=== PATIENT | female | born 1955 | race Caucasian/White ===

== ENCOUNTER 2018-03-10 10:07 | Day surgery (SDC) | payer OTHER ==
[~2018-03-10] VITALS: Ht 160 cm; Wt 53.2 kg
[~2018-03-10 10:07] MED LIST: BIOTIN2500 MCG PO
[2018-03-10] MEDS ORDERED: FISH OIL + D31 EACH (10:31)
[2018-03-10] MEDS ORDERED: VALA500 (10:32)
[2018-03-10] MEDS ORDERED: WOMEN MULTIVIT1 EACH (10:32)
[2018-03-10] MEDS ORDERED: CHONDROITIN SULFATE (10:32)
[2018-03-10] MEDS ORDERED: HYALURONATE SODIUM (10:32)
== END 2018-03-10 11:57 | disposition home or self-care (01) ==
LOC: ORSCSDS 10:07
PROVIDERS: Internal Medicine Gastroenterology
PROC: 0DBL8ZX Excision of Transverse Colon, Via Natural or Artificial Opening Endoscopic, Diagnostic (ICD-10-PCS; principal; 2018-03-10 11:30)
DX: Z12.11 Encounter for screening for malignant neoplasm of colon (principal); D12.3 Benign neoplasm of transverse colon; Q00-Q99 Congenital malformations, deformations and chromosomal abnormalities; K64.8 Other hemorrhoids; K57.30 Diverticulosis of large intestine without perforation or abscess without bleeding; E78.5 Hyperlipidemia, unspecified
CPT/HCPCS: 88305

== ENCOUNTER 2019-03-19 19:40 | Emergency (ER) | payer OTHER ==
[~2019-03-19] VITALS: Ht 160 cm; Wt 54.4 kg
[~2019-03-19 19:40] MED LIST changes: +CHONDROITIN SULFATE; +FISH OIL + D31 EACH; +HYALURONATE SODIUM; +VALA500; +WOMEN MULTIVIT1 EACH
[2019-03-19] MEDS ORDERED: Percocet 5-3251 EACH PO (21:29)
[2019-03-19] MEDS ORDERED: BACI500TO TOP (21:29)
== END 2019-03-19 22:40 | disposition home or self-care (01) ==
LOC: ER 19:40
DX: T22.212A Burn of second degree of left forearm, initial encounter (principal); T31.0 Burns involving less than 10% of body surface; W22.8XXA Striking against or struck by other objects, initial encounter
CPT/HCPCS: 16020; 96374-59; 96375-59; 99283-25; A9270; J1885; J3010

== ENCOUNTER 2019-03-24 08:30 | Day surgery (SDC) | payer OTHER ==
[~2019-03-24 08:30] MED LIST changes: +BACI500TO TOP; +Percocet 5-3251 EACH PO
== END 2019-03-24 22:35 | disposition home or self-care (01) ==
LOC: WOUND 08:30
DX: T22.212A Burn of second degree of left forearm, initial encounter (principal); T23.262A Burn of second degree of back of left hand, initial encounter; T22.222A Burn of second degree of left elbow, initial encounter
CPT/HCPCS: G0463

== ENCOUNTER 2019-03-26 11:15 | Day surgery (SDC) | payer OTHER | END 2019-03-26 22:35 | disposition home or self-care (01) | LOC: WOUND 11:15 | DX: T22.222A Burn of second degree of left elbow, initial encounter (principal); T22.212A Burn of second degree of left forearm, initial encounter; T23.262A Burn of second degree of back of left hand, initial encounter; X12.XXXA Contact with other hot fluids, initial encounter | CPT/HCPCS: G0463 ==

== ENCOUNTER 2019-03-31 00:23 | Day surgery (SDC) | payer OTHER | END 2019-03-31 22:35 | disposition home or self-care (01) | LOC: WOUND 00:23 | DX: T22.221D Burn of second degree of right elbow, subsequent encounter (principal); T23.262D Burn of second degree of back of left hand, subsequent encounter; T22.212D Burn of second degree of left forearm, subsequent encounter | CPT/HCPCS: G0463 ==

== ENCOUNTER 2019-04-06 09:06 | Day surgery (SDC) | payer OTHER | END 2019-04-06 23:00 | disposition home or self-care (01) | LOC: WOUND 09:06 | DX: T22.221D Burn of second degree of right elbow, subsequent encounter (principal); T23.262D Burn of second degree of back of left hand, subsequent encounter; T22.212D Burn of second degree of left forearm, subsequent encounter | CPT/HCPCS: G0463 ==

== ENCOUNTER 2019-04-13 00:23 | Day surgery (SDC) | payer OTHER | END 2019-04-13 22:58 | disposition home or self-care (01) | LOC: WOUND 00:23 | DX: T22.221A Burn of second degree of right elbow, initial encounter (principal); T23.262A Burn of second degree of back of left hand, initial encounter; T22.212A Burn of second degree of left forearm, initial encounter ==

== ENCOUNTER 2019-04-20 00:15 | Day surgery (SDC) | payer OTHER | END 2019-04-20 22:39 | disposition home or self-care (01) | LOC: WOUND 00:15 | DX: T22.212D Burn of second degree of left forearm, subsequent encounter (principal); T22.221D Burn of second degree of right elbow, subsequent encounter; E78.5 Hyperlipidemia, unspecified; T23.262D Burn of second degree of back of left hand, subsequent encounter | CPT/HCPCS: G0463 ==

== ENCOUNTER 2019-04-27 08:52 | Day surgery (SDC) | payer OTHER | END 2019-04-27 23:15 | disposition home or self-care (01) | LOC: WOUND 08:52 | DX: T22.212D Burn of second degree of left forearm, subsequent encounter (principal); T22.222D Burn of second degree of left elbow, subsequent encounter; X12.XXXA Contact with other hot fluids, initial encounter | CPT/HCPCS: G0463 ==

== ENCOUNTER 2019-05-05 08:07 | Day surgery (SDC) | payer OTHER | END 2019-05-05 22:40 | disposition home or self-care (01) | LOC: WOUND 08:07 | DX: T22.221D Burn of second degree of right elbow, subsequent encounter (principal); T22.212D Burn of second degree of left forearm, subsequent encounter; X12.XXXD Contact with other hot fluids, subsequent encounter | CPT/HCPCS: G0463 ==

== ENCOUNTER 2019-05-11 00:20 | Day surgery (SDC) | payer OTHER | END 2019-05-11 22:34 | disposition home or self-care (01) | LOC: WOUND 00:20 | DX: T22.221D Burn of second degree of right elbow, subsequent encounter (principal); T22.212D Burn of second degree of left forearm, subsequent encounter; E78.5 Hyperlipidemia, unspecified; Z79.899 Other long term (current) drug therapy; X08.8XXD Exposure to other specified smoke, fire and flames, subsequent encounter | CPT/HCPCS: G0463 ==

== ENCOUNTER → 2019-08-12 | Outpatient (CLI) | payer OTHER | END | disposition home or self-care (01) | LOC: PLD 11:40 → LAB SHORT 11:40 | DX: D22.71 Melanocytic nevi of right lower limb, including hip (principal) | CPT/HCPCS: 88305 ==

== ENCOUNTER → 2023-03-27 | Outpatient (CLI) | payer MEDICARE, OTHER | LOC: PLD 12:06 → LAB SHORT 12:06 | DX: L57.0 Actinic keratosis (principal) | CPT/HCPCS: 88305 ==